=== PATIENT | female | born 1965 | race Caucasian/White ===

== ENCOUNTER 2019-04-15 15:44 | Outpatient (CLI) | payer BC ==
--- NOTE | 2019-04-15 16:09 | CT ---
EXAM: CT sinuses without contrast HISTORY: Frontal headaches with chronic sinus infections without antibiotic relief COMPARISON: None TECHNIQUE: Multiple contiguous axial images were obtained and a CT of the face without contrast. Sagi ttal and coronal reformats were performed. FINDINGS: No facial fractures are identified. No facial soft tissue swelling is seen. The globes and retrobulbar soft tissues are unremarkable. The visualized paranasal sinuses are well aerated without evidence of opacification. No mucosal thick ening or mucous retention cysts are seen in any of the sinuses. The mastoid air cells are well aerated. Visualized intracranial structures are unremarkable. IMPRESSION: No significant sinus disease.
== END 2019-04-15 15:45 | disposition home or self-care (01) ==
LOC: SCSCT 15:44
PROVIDERS: ATTEND Family Medicine
DX: J01.90 Acute sinusitis, unspecified (principal)

== ENCOUNTER 2019-09-21 09:58 | Outpatient (CLI) | payer BC ==
--- NOTE | 2019-09-21 11:18 | ULT ---
EXAM: Pelvic ultrasound HISTORY: Severe right lower quadrant pelvic pain COMPARISON: None TECHNIQUE: Multiple grayscale and color Doppler images were obtained in a transabdominal and transvag inal pelvic ultrasound. Spectral analysis of the Doppler waveforms of the ovaries were performed. FINDINGS: CERVIX: No evidence of nabothian cysts. UTERUS: Normal in size without focal abnormality. ENDOMETRIAL STRIPE: 6 mm. No free fluid is seen in the pelvis. RIGHT OVARY: A structure in the right adnexa may represent the ovary. This contains internal flow. LEFT OVARY: Not visualized IMPRESSION: No significant pelvic abnormality
== END 2019-09-21 09:59 | disposition home or self-care (01) ==
LOC: SCSULT 09:58
PROVIDERS: ATTEND Family Medicine
DX: N83.519 Torsion of ovary and ovarian pedicle, unspecified side (principal); R10.31 Right lower quadrant pain
CPT/HCPCS: 76856

== ENCOUNTER 2021-04-11 13:56 | Outpatient (CLI) | payer BC | END 2021-04-11 13:57 | disposition home or self-care (01) | LOC: CT 13:56 | PROVIDERS: ATTEND Internal Medicine | DX: R10.31 Right lower quadrant pain (principal); K57.92 Diverticulitis of intestine, part unspecified, without perforation or abscess without bleeding; R19.4 Change in bowel habit; R91.1 Solitary pulmonary nodule; M43.17 Spondylolisthesis, lumbosacral region; J47.9 Bronchiectasis, uncomplicated | CPT/HCPCS: 74177 ==